=== PATIENT | male | born 1955 | race Caucasian/White ===

== ENCOUNTER 2017-01-13 10:51 | Emergency (ER) | payer MEDICARE ==
[2017-01-13 10:55] VITALS: BP 118/64
--- NOTE | 2017-01-13 11:03 | ERNOTE ---
Integumentary HPI - General Presenting Symptoms: rash Time Seen by Provider: 01/13/17 10:51 Source: patient Exam Limitations: no limitations - Immun/Allergies/Home Medications Immunizations: IMMUNIZATION HX Immunizations Up to Date Yes History of Influenza Vaccine Yes Hx Pneumococcal Vaccination Yes Allergies/Adverse Reactions: Allergies Allergy/AdvReac Type Severity Reaction Status Date / Time No Known Allergies Allergy Verified 01/13/17 10:54 Home Medications: HOME MEDICATIONS Alprazolam [Xanax] 1 mg PO Q4H 04/21/13 [Last Taken Unknown] Lovastatin [Altoprev] 20 mg PO DAILY 04/21/13 [Last Taken Unknown] Lisinopril [Zestril] 40 mg PO DAILY 05/27/13 [Last Taken Unknown] oxyCODONE HCL/ACETAMINOPHEN [Percocet 10-325 mg Tablet] 1 each PO QID 02/04/15 [ Last Taken Unknown] Carisoprodol [Soma] 350 mg PO QID 02/15/16 [Last Taken Unknown] FLUoxetine HCL [Prozac] 40 mg PO DAILY 02/15/16 [Last Taken Unknown] Pramipexole Di-HCl [Mirapex] 1.5 mg PO BID 02/15/16 [Last Taken Unknown] amLODIPine BESYLATE [Norvasc] 10 mg PO DAILY 02/15/16 [Last Taken Unknown] risperiDONE [Risperdal] 4 mg PO HS 02/15/16 [Last Taken Unknown] Furosemide [Lasix] 20 mg PO DAILY 02/17/16 [Last Taken Unknown] predniSONE [Prednisone] 3 tab PO DAILY #18 tab 01/13/17 [Last Taken Unknown] - History of Present Illness Narrative: Patient is here for a rash which he believes is caused by poison oak. He has been helping a friend with his chickens and thinks that he keeps getting exposed. He started with symptoms about a months ago,was seen by his doctor and treated with IM injection and prednisone po, got better, had symptoms again two weeks ago, was seen ago, short course of steroids which did not completely resolve his symptoms which are limited to his arms Location: Reports: upper extremity Quality: Reports: itching Severity: moderate Exposure: Reports: poison katelyn/oak Modifying Factors - (Improves): Reports: prednisone Associated Symptoms: Reports: rash Prior Treatment: Reports: recently seen, treated by physician Review of Systems - Review of Systems Constitutional: Absent: fever ENT: Absent: nasal drainage Respiratory: Present: shortness of breath - at baseline, cough - at baseline Cardiology: Absent: chest pain Gastrointestinal/Abdominal: Absent: nausea, abdominal pain Genitourinary: Present: no symptoms reported Musculoskeletal: Present: no symptoms reported Skin: Present: See HPI Neurological: Absent: weakness, numbness - Patient's Past Medical History Patient History - Medical: No pertinent hx Patient History - Cardiac/Respiratory: Coronary Heart Disease, COPD, Hypertension, Other Patient History - Cancer: No Hx of Cancer Patient History - Surgical Procedures: Cardiac stent Patient History - Other: None - Social History Living Situations: home Smoking Status: Current every day smoker Cigarettes Packs Per Day: 1.5 Have you smoked in the past 12 months: Yes Alcohol Use: rarely - Immunizations Immunizations Up to Date: Yes Hx Pneumococcal Vaccination: Yes History of Influenza Vaccine: Yes Physical Exam - Physical Exam General Appearance: Present: wd/wn, alert, no apparent distress Ears, Nose, Throat: Present: normal pharynx Respiratory: Present: no respiratory distress, no accessory muscle use, lungs clear, decreased breath sounds Cardiovascular/Chest: Present: regular rate, rhythm Neurological Exam: Present: alert, oriented, normal mood/affect Skin Exam: Present: normal color, warm/dry, skin rash - skin edema and redness consistent with dermatitis ED Progress - Vital Signs Patient's Vital Signs:: I have reviewed the patient's vital signs. Vital Signs: Vital Signs 01/13/17 10:53 Pulse Rate 67 Respiratory 14 Rate Blood Pressure 118/64 O2 Sat by Pulse 98 Oximetry - Progress/Reassessment Chief Complaint: Rash Departure Clinical Impression: Poison oak dermatitis - Departure Disposition: Home self-care Condition: Good Instructions: Poison Katelyn Dermatitis, [id number] Referrals: Adrián Guerra DO [Primary Care Provider] - Prescriptions: predniSONE [Prednisone] 3 tab PO DAILY #18 tab
== END 2017-01-13 11:00 | disposition home or self-care (01) ==
LOC: ER 10:51
DX: L23.7 Allergic contact dermatitis due to plants, except food (principal); J44.9 Chronic obstructive pulmonary disease, unspecified; I10 Essential (primary) hypertension; F17.200 Nicotine dependence, unspecified, uncomplicated